=== PATIENT | male | born 1940 | race Caucasian/White ===

== ENCOUNTER 2019-05-08 07:08 | Emergency (ER) | payer MEDICARE ==
[~2019-05-08] VITALS: Ht 177.8 cm; Wt 97.5 kg
--- NOTE | 2019-05-08 08:03 | NUR ---
Patient discharged to home in stable conditon. Written and verbal after care instructions given. Patient verbalizes understanding of instructions.pt walks in steady gait.
== END 2019-05-08 08:06 | disposition home or self-care (01) ==
LOC: ER 07:08
DX: K05.10 Chronic gingivitis, plaque induced (principal); F32.9 Major depressive disorder, single episode, unspecified; H93.11 Tinnitus, right ear
CPT/HCPCS: A4663

== ENCOUNTER 2022-01-31 06:31 | Emergency (ER) | payer MEDICARE ==
[~2022-01-31] VITALS: Ht 177.8 cm; Wt 99.8 kg
--- NOTE | 2022-01-31 06:52 | NUR ---
ABIGAIL TOLEDO at bedside for MSE.
[2022-01-31] MEDS ORDERED: DICL50TA9 PO (07:00)
[2022-01-31 07:05] VITALS: BP 155/80
--- NOTE | 2022-01-31 07:05 | NUR ---
Patient discharged to home in stable condition. Written and verbal after care instructions given. Patient verbalizes understanding of instructions. Stressed follow up or return to ER for worsening s/s.
== END 2022-01-31 07:06 | disposition home or self-care (01) ==
LOC: ER 06:48
DX: M79.652 Pain in left thigh (principal); M79.651 Pain in right thigh; N40.0 Benign prostatic hyperplasia without lower urinary tract symptoms; M45.9 Ankylosing spondylitis of unspecified sites in spine; F32.A Depression, unspecified
CPT/HCPCS: A4663

== ENCOUNTER 2023-06-17 07:26 | Emergency (ER) | payer MEDICARE ==
[~2023-06-17] VITALS: Ht 177.8 cm; Wt 104.3 kg
[~2023-06-17 07:26] MED LIST: DICL50TA9 PO
[2023-06-17] MEDS ORDERED: POLY17PO4 PO (08:02)
[2023-06-17 08:34] VITALS: BP 155/95; TEMP 98.3; O2SAT 96
== END 2023-06-17 08:34 | disposition home or self-care (01) ==
LOC: ER 07:28
DX: K59.00 Constipation, unspecified (principal); Z79.899 Other long term (current) drug therapy
CPT/HCPCS: A4663